=== PATIENT | male | born 1940 | race African-American/Black ===

== ENCOUNTER 2018-01-09 14:25 | Emergency (ER) | payer MEDICARE, OTHER ==
[~2018-01-09] VITALS: Ht 170.2 cm; Wt 77.8 kg
[~2018-01-09 14:25] MED LIST: ACET300T2 PO; ACET325T PO; AMLO5TAB2 PO; ASPI1TAB69 PO; DONE10TA7 PO; LEXA20TA PO; LORA0.5T PO; MILKSUS PO; NAME10TA PO; OMEP20TA93 PO; PHEN125S PO; PROP10TA6 PO; RISP0.252 PO; VALP250S2 PO
[2018-01-09] MEDS ORDERED: levETIRAcetam INJ 500 MG in SODIUM CHLORIDE 0.9% INJ 100 ML IV ONE ×2 (14:30→15:00)
[2018-01-09 14:40] VITALS: BP 159/104; PULSE 118; RESP 16; TEMP 98.9; O2SAT 99
--- NOTE | 2018-01-09 14:43 | PD ---
HPI Chief Complaint: seizure Time Seen by Provider: 14:30 Travel History International Travel<30 days: No Contact w/Intl Traveler<30days: No History of Present Illness HPI 77 y/o male presents with 15 minute seizure. Patient given versed 2mg im and then 2mg iv and continues to seize. patient actively seizing here so history is limited PFSH Past Medical History Alzheimer's Disease: Yes Depression: Yes Cancer: No Cardiovascular Problems: Yes High Cholesterol: Yes Cerebrovascular Accident: Yes Coronary Artery Disease: Yes Dementia: Yes (WITH BEHAVIOR DIST) Diabetes: No Endocrine: No Gastrointestinal Disorders: Yes (PEG TUBE REMOVED; C-DIFF) Genitourinary: Yes Hypertension: Yes Immune Disorder: No Implanted Vascular Access Dvce: Yes Neurologic: Yes Psychiatric: Yes (PSYCHOSIS; schizoaffective & behavioral disorder ) Respiratory: Yes Pneumonia: Yes Renal Failure: Yes (impaired renal function) Seizures: Yes Past Surgical History Abdominal Surgery: Yes (previous PEG tube) AICD: No Arteriovenous Shunt: No Body Medical Devices: PEG TUBE Insulin Pump: No Joint Replacement: No Pacemaker: No Other Surgery: Yes (PEG TUBE PLACEMENT) Social History Alcohol Use: No (UTO) Tobacco Use: No (UTO) Substance Use: No Allergies-Medications (Allergen,Severity, Reaction): Coded Allergies: No Known Allergies (Verified , 09/02/16) Reported Meds & Prescriptions Reported Meds & Active Scripts Active Phenytoin Liq (Phenytoin) 125 Mg/5 Ml Charlene 100 Mg PO Q8HR Valproic Acid Liq 250 Mg/5 Ml Syp 1,000 Mg PO TID Reported Lorazepam 0.5 Mg Tab 0.5 Mg PO BID PRN Omeprazole 20 Mg Tab 20 Mg PO DAILY Namenda (Memantine) 10 Mg Tab 10 Mg PO BID Risperidone 0.25 Mg Tab 0.25 Mg PO HS Propranolol (Propranolol HCl) 10 Mg Tab 10 Mg PO Q8HR Milk of Magnesia Liq (Magnesium Hydroxide) 400 Mg/5 Ml Susp 30 Ml PO DAILY PRN Lexapro (Escitalopram Oxalate) 20 Mg Tab 20 Mg PO DAILY Donepezil 10 Mg Tab 10 Mg PO HS Aspirin 81 Mg Tabdr 81 Mg PO DAILY Amlodipine (Amlodipine Besylate) 5 Mg Tab 5 Mg PO DAILY Acetaminophen 325 Mg Tab 325 Mg PO Q4-6H PRN Acetaminophen-Codeine 300-30 mg Tab 1 Tab PO Q8HR PRN Review of Systems ROS Limitations: Other: (active seizure) Physical Exam Narrative GENERAL: active seizure with rightward gaze and tonic-clonic movement of right arm SKIN: Focused skin assessment warm/dry. HEAD: Atraumatic. Normocephalic. EYES: Pupils equal and round. No scleral icterus. No injection or drainage. ENT: No nasal bleeding or discharge. Mucous membranes pink and moist. NECK: Trachea midline. CARDIOVASCULAR: Regular rate and rhythm. RESPIRATORY: Clear to auscultation. Breath sounds equal bilaterally. GASTROINTESTINAL: Abdomen soft, nondistended. NEUROLOGICAL: actively seizing Data Data Last Documented VS Vital Signs Date Time Temp Pulse Resp B/P (MAP) Pulse Ox O2 Delivery O2 Flow Rate FiO2 01/09/18 18:08 01/09/18 17:33 98 17 98 Room Air 01/09/18 16:40 15.00 01/09/18 14:40 98.9 Orders Orders Levetiracetam Inj (Keppra Inj) (01/09/18 14:30) Complete Blood Count With Diff (01/09/18 14:31) Phenytoin (Dilantin) (01/09/18 14:31) Electrocardiogram (01/09/18 ) Ct Brain W/O Iv Contrast(Rout) (01/09/18 ) Blood Glucose (01/09/18 14:31) Ecg Monitoring (01/09/18 14:31) Iv Access Insert/Monitor (01/09/18 14:31) Oximetry (01/09/18 14:31) Comprehensive Metabolic Panel (01/09/18 14:31) Sodium Chloride 0.9% Flush (Ns Flush) (01/09/18 14:45) Urinalysis - C+S If Indicated (01/09/18 14:31) Lorazepam Inj (Ativan Inj) (01/09/18 14:45) Valproic Acid (Depakene) (01/09/18 14:48) Levetiracetam Inj (Keppra Inj) (01/09/18 15:00) Hospice Consult (01/09/18 16:17) Fosphenytoin Inj (Cerebyx Inj) (01/09/18 17:15) Ed Discharge Order (01/09/18 17:33) Code Status (01/09/18 17:36) Labs Laboratory Tests Test 01/09/18 14:41 01/09/18 14:45 White Blood Count 9.5 TH/MM3 Red Blood Count 4.72 MIL/MM3 Hemoglobin 13.5 GM/DL Hematocrit 41.5 % Mean Corpuscular Volume 88.1 FL Mean Corpuscular Hemoglobin 28.6 PG Mean Corpuscular Hemoglobin Concent 32.5 % Red Cell Distribution Width 13.4 % Platelet Count 208 TH/MM3 Mean Platelet Volume 8.4 FL Neutrophils (%) (Auto) 77.0 % Lymphocytes (%) (Auto) 15.9 % Monocytes (%) (Auto) 5.8 % Eosinophils (%) (Auto) 0.8 % Basophils (%) (Auto) 0.5 % Neutrophils # (Auto) 7.3 TH/MM3 Lymphocytes # (Auto) 1.5 TH/MM3 Monocytes # (Auto) 0.5 TH/MM3 Eosinophils # (Auto) 0.1 TH/MM3 Basophils # (Auto) 0.0 TH/MM3 CBC Comment DIFF FINAL Differential Comment Blood Urea Nitrogen 9 MG/DL Creatinine 1.24 MG/DL Random Glucose 135 MG/DL Total Protein 8.4 GM/DL Albumin 3.9 GM/DL Calcium Level 9.0 MG/DL Alkaline Phosphatase 112 U/L Aspartate Amino Transf (AST/SGOT) 18 U/L Alanine Aminotransferase (ALT/SGPT) 28 U/L Total Bilirubin 0.2 MG/DL Sodium Level 138 MEQ/L Potassium Level 4.3 MEQ/L Chloride Level 104 MEQ/L Carbon Dioxide Level 16.4 MEQ/L Anion Gap 18 MEQ/L Estimat Glomerular Filtration Rate 69 ML/MIN Phenytoin (Dilantin) Level 6.9 MCG/ML Valproic Acid (Depakene) Level 4 MCG/ML Urine Color YELLOW Urine Turbidity CLEAR Urine pH 5.5 Urine Specific Garner 1.026 Urine Protein 30 mg/dL Urine Glucose (UA) NEG mg/dL Urine Ketones TRACE mg/dL Urine Occult Blood NEG Urine Nitrite NEG Urine Bilirubin NEG Urine Urobilinogen LESS THAN 2.0 MG/DL Urine Leukocyte Esterase NEG Urine RBC 2 /hpf Urine WBC 2 /hpf Urine Squamous Epithelial Cells 2 /hpf Urine Hyaline Casts 7 /lpf Urine Mucus MANY /lpf Microscopic Urinalysis Comment CULT NOT INDICATED MDM Medical Decision Making Medical Screen Exam Complete: Yes Emergency Medical Condition: Yes Medical Record Reviewed: Yes (pmh confirmed) Interpretation(s) CBC & BMP Diagram 01/09/18 14:41 Total Protein 8.4 H, Albumin 3.9, Calcium Level 9.0, Alkaline Phosphatase 112, Aspartate Amino Transf (AST/SGOT) 18, Alanine Aminotransferase (ALT/SGPT) 28, Total Bilirubin 0.2 Last [address] 01/09/18 0000 Signed Impressions: Service Date/Time: Tuesday, January 09, 2018 14:51 - CONCLUSION: 1. 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 2. No acute intracranial process to explain current clinical symptoms. Cuauhtemoc Macario MD Differential Diagnosis intracranial bleed, seizure disorder, electrolyte abnormality... Narrative Course Patient will be given 1 mg of Ativan and closely monitored and given 500 of Keppra and discussed with neurology. Patient is a DNR patient and currently stable on nonrebreather. Will order blood work and CT Patient stopped seizing after Ativan given. Patient will go on monitor with nurse to CT When came back from CT patient had another seizure he was given another 1 mg of Ativan and seizure stopped. Attempted to reach next of kin but no answer and voicemail full. Was able to get hold of The guardian who is Court appointed and confirms patient is DNR. She states patient is a [facility] patient. She agrees to return to long term with continuous hospice care there given current condition. He has had no additional seizures after Keppra given. Dilantin level is Low so he was given additional replacement of this. advised to keep npo until awakens more Critical Care Narrative Aggregate critical care time was 45 minutes. Time to perform other separately billable procedures was not included in the critical care time. My time did not include minutes spent treating any other patients simultaneously or on activities that did not directly contribute to the patient's treatment. The services I provided to this patient were to treat and/or prevent clinically significant deterioration that could result in: Status epilepticus, respiratory failure I provided critical care services requiring my management, as noted below: Chart data review, documentation time, medication orders and management, vital sign assessments/reviewing monitor data, ordering and reviewing lab tests, ordering and interpreting/reviewing x-rays and diagnostic studies, care of the patient and discussion of the patient with the admitting physicians. Physician Communication Physician Communication dr rudolph states to load with keppra 1g and confirm code status with next of kin , if not wanting aggressive care discuss hospice Diagnosis Primary Impression: Status epilepticus Patient Instructions: General Instructions Additional Instructions: home dilantin will need to be increased thru his neurologist Med/Other Pt SpecificInfo: Existing Med Changed Disposition: 70 TRANSFER TO OTHER FACILITY (long term with hospice) Condition: Serious Gloria Lowe MD Jan 09, 2018 14:43
[2018-01-09] MEDS ORDERED: LORazepam 2 MG/ML VIAL IV PUSH ONE (14:45)
[2018-01-09] MEDS ORDERED: SODIUM CHLORIDE 0.9% FLUSH 10 ML FLUSH IVF PRN (14:45)
--- NOTE | 2018-01-09 15:03 | RADRPT ---
EXAM DATE/TIME: 01/09/2018 14:51 [facility] COMPARISON: CT BRAIN W/O CONTRAST, September 02, 2016, 7:34. INDICATIONS : Altered mental status. Multiple seizures. RADIATION DOSE: 30.15 CTDIvol (mGy) MEDICAL HISTORY : Alzheimer's Cardiovascular disease Renal failure, chronic.Seizures. Hypertension. SURGICAL HISTORY : None. ENCOUNTER: Initial ACUITY: 1 day PAIN SCALE: Non-responsive LOCATION: cranial TECHNIQUE: Multiple contiguous axial images were obtained of the head. Using automated exposure control and adj ustment of the mA and/or kV according to patient size, radiation dose was kept as low as reasonably a chievable to obtain optimal diagnostic quality images. DICOM format image data is available electro nically for review and comparison. FINDINGS: CEREBRUM: Stable prominence of the ventricular system with some vacuo dilatation of the posterior horn of the l eft lateral ventricle. Old left MCA infarct along the high posterior parietal convexity. Small lacuna r type infarct in the left thalamus and old white matter infarct in the right external capsule. Periv entricular areas of diminished attenuation are characteristic of moderately severe small vessel ische malik demyelination. Nothing acute. POSTERIOR FOSSA: The cerebellum and brainstem are intact. The 4th ventricle is midline. The cerebellopontine angle i s unremarkable. EXTRACRANIAL: The visualized portion of the orbits is intact. SKULL: The calvaria is intact. No evidence of skull fracture. CONCLUSION: 1. 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 2. No acute intracranial process to explain current clinical symptoms. Cuauhtemoc Macario MD on January 09, 2018 at 14:58 Board Certified Radiologist. This report was verified electronically.
[2018-01-09 15:05] VITALS: BP 121/80; PULSE 108; RESP 14; O2SAT 100
[2018-01-09 15:20] LABS: AUTOMATED NEUTROPHIL # 7.3 TH/MM3 (1.8-7.7); BASOPHIL % 0.5 % (0.0-2.0); EOSINOPHIL # 0.1 TH/MM3 (0-0.4); EOSINOPHIL % 0.8 % (0.0-4.0); HEMATOCRIT 41.5 % (39.0-51.0); HEMOGLOBIN 13.5 GM/DL (13.0-17.0); LYMPH % 15.9 % (9.0-44.0); LYMPHOCYTE # 1.5 TH/MM3 (1.0-4.8); MEAN CELL VOLUME 88.1 FL (80.0-100.0); MEAN CORPUSCULAR HEMOGLOBIN 28.6 PG (27.0-34.0); MEAN CORPUSCULAR HGB CONC 32.5 % (32.0-36.0); MEAN PLATELET VOLUME 8.4 FL (7.0-11.0); MONO % 5.8 % (0.0-8.0); MONOCYTE # 0.5 TH/MM3 (0-0.9); PLATELET COUNT 208 TH/MM3 (150-450); RED BLOOD COUNT 4.72 MIL/MM3 (4.50-5.90); RED CELL DISTRIBUTION WIDTH 13.4 % (11.6-17.2); WHITE BLOOD COUNT 9.5 TH/MM3 (4.0-11.0)
[2018-01-09 15:47] LABS: ALBUMIN 3.9 GM/DL (3.4-5.0); ALT (GPT) 28 U/L (12-78); AST (GOT) 18 U/L (15-37); BICARBONATE 16.4 MEQ/L (21.0-32.0); BLOOD UREA NITROGEN 9 MG/DL (7-18); CHLORIDE 104 MEQ/L (98-107); CREATININE 1.24 MG/DL (0.60-1.30); GLOMERULAR FILTRATION RATE 69 ML/MIN (>89); GLUCOSE,RANDOM 135 MG/DL (74-106); SODIUM (NA) 138 MEQ/L (136-145)
[2018-01-09 15:50] LABS: ALKALINE PHOSPHATASE 112 U/L (45-117); PHENYTOIN (DILANTIN) 6.9 MCG/ML (10.0-20.0); TOTAL BILIRUBIN ADULT 0.2 MG/DL (0.2-1.0); TOTAL PROTEIN 8.4 GM/DL (6.4-8.2)
[2018-01-09 15:59] LABS: BILIRUBIN, URINE NEG (NEG); BLOOD, URINE NEG (NEG); GLUCOSE,URINE NEG (NEG); HYALINE CAST, URINE 7 /lpf (RARE); KETONE, URINE TRACE mg/dL (NEG); MUCUS URINE MANY /lpf (OCC); NITRITE,URINE NEG (NEG); PH, URINE 5.5 (5.0-8.5); SQUAMOUS EPITHELIAL CELL URINE 2 /hpf (0-5); URINE COLOR YELLOW (YELLW/STRAW); URINE LEUKOCYTE ESTERASE NEG (NEG)
[2018-01-09] MEDS ORDERED: FOSPHENYTOIN SODIUM 500 MG PE/10 ML VIAL IV ONE (16:15)
[2018-01-09] MEDS ORDERED: FOSPHENYTOIN INJ 500 MGPE in SODIUM CHLORIDE 0.9% INJ 50 ML IV ONE (17:15)
[2018-01-09 17:33] VITALS: BP 143/84; PULSE 98; RESP 17; O2SAT 98
--- NOTE | 2018-01-10 20:52 | EKG ---
Date Performed: 01/09/2018 Time Performed: 14:44:01 PTAGE: 77 years EKG: SINUS TACHYCARDIA WITH OCCASIONAL VENTRICULAR PREMATURE COMPLEXES POSSIBLE RIGHT VENTRICULA R CONDUCTION DELAY PROBABLE SEPTAL MYOCARDIAL INFARCTION ST DEPRESSION, CONSIDER SUBENDOCARDIAL INJUR Y ABNORMAL ECG PREVIOUS TRACING : 09/02/2016 10.38 Compared to previous tracing sinus tachycardia and st abnor malities are new DOCTOR: Eliud Leonard Interpretating Date/Time 01/10/2018 20:50:47
== END 2018-01-09 18:09 | disposition short-term general hospital (02) ==
LOC: NEPE 14:25
DX: G40.901 Epilepsy, unspecified, not intractable, with status epilepticus (principal); G30.9 Alzheimer's disease, unspecified; I10 Essential (primary) hypertension
CPT/HCPCS: 70450; 80053; 80164; 80185; 81001; 85025; 93005; 96365; 96368; 96375; 99291; J1953; J2060; Q2009